=== PATIENT | female | born 1975 | race Hispanic/Latino ===

== ENCOUNTER 2021-02-06 18:34 | Inpatient (IN) | payer SELFPAY ==
[2021-02-06] MEDS ORDERED: Ondansetron PF 4 MG/2 ML Vial IVP PRN (19:02)
[2021-02-06] MEDS ORDERED: Acetaminophen 325 MG TAB PO PRN (19:02)
[2021-02-06] MEDS ORDERED: Ondansetron ODT 4 MG TAB PO PRN (19:02)
[2021-02-06] MEDS ORDERED: Metoclopramide HCl 10 MG/2 ML VIAL IVP SCH (19:30)
[2021-02-06] MEDS ORDERED: Labetalol HCl 100 MG/20 ML VIAL SLOW IVP SCH (19:30)
[2021-02-06] MEDS ORDERED: diphenhydrAMINE 50 MG/ML VIAL IVP SCH (19:45)
[2021-02-06] MEDS: Metoprolol Tartrate 25 MG TAB PO SCH ×3 (20:29→23:09)
[2021-02-06] MEDS: ALPRAZolam 1 MG TAB PO PRN ×2 (20:30→21:33)
[2021-02-06] MEDS: Potassium Chloride 20 MEQ TAB PO SCH ×2 (20:30→21:31)
[2021-02-06 21:13] LABS: Magnesium 2.1 mg/dL (1.6-2.6); Phosphorus 3.1 mg/dL (2.3-4.7)
[2021-02-06 21:34] LABS: Free T4 (Free Thyroxine) 0.68 ng/dL (0.70-1.48); Thyroid Stimulating Hormone 1.3809 uIU/mL (0.35-4.94)
[2021-02-06 21:44] VITALS: BMI 25.2
[2021-02-06] MEDS: medroxyPROGESTERone Acetate 5 MG TAB PO SCH (22:28)
[2021-02-06] MEDS: Tranexamic Acid 650 MG TAB PO SCH (22:30)
[2021-02-07 06:27] LABS: #Eosinphils 0.2 10x3/uL (0.0-0.5); #Monocytes 0.4 10x3/uL (0.0-1.1); #Neutrophils 2.7 10x3/uL (1.5-8.4); %Basophils 0.6 % (0.0-2.0); %Eosinophils 3.7 % (0.0-6.0); %Lymphocytes 28.5 % (18.0-47.0); %Monocytes 8.4 % (0.0-10.0); %Neutrophils 58.4 % (40.0-75.0); Anion Gap 10 mmol/L (10-20); BUN (Urea Nitrogen) 8 mg/dL (7.0-18.7); Calc. Creatinine Clearance 96 mL/min (70-130); Calcium 8.5 mg/dL (7.8-10.44); Carbon Dioxide 22 mmol/L (22-29); Chloride 111 mmol/L (98-107); Glucose 111 mg/dL (70-105); Hemoglobin 6.7 g/dL (12.0-15.5); Mean Corpuscular HGB CONC 28.2 g/dL (32.0-36.0); Mean Corpuscular Hemoglobin 20.6 pg (27.0-33.0); Mean Corpuscular Volume 73.2 fl (81.6-98.3); Mean Platelet Volume 10.5 fl (7.4-10.4); Platelet Count 350 10x3/uL (150-450); Potassium 4.2 mmol/L (3.5-5.1); RBC Distribution Width 20.9 % (11.5-14.5); Red Blood Cell (RBC) Count 3.25 10x6/uL (3.90-5.03); Sodium 139 mmol/L (136-145); White Blood Cell (WBC) Count 4.6 10x3/uL (3.5-10.5)
[2021-02-07] MEDS ORDERED: Ferrous Sulfate 325 MG TAB PO SCH (08:00)
[2021-02-07] MEDS: Tranexamic Acid 650 MG TAB PO SCH ×2 (08:53→15:50)
[2021-02-07] MEDS ORDERED: Lisinopril 20 MG TAB PO SCH (09:00)
[2021-02-07] MEDS ORDERED: traMADol HCl 50 MG TAB PO SCH (09:00)
[2021-02-07] MEDS: medroxyPROGESTERone Acetate 5 MG TAB PO SCH (11:03)
[2021-02-07 15:10] LABS: SARS-CoV-2 PCR by NAA Not Detected (NotDetected)
[2021-02-07 15:55] VITALS: BP 130/65; TEMP 98.6
[2021-02-07 16:26] LABS: #Basophils 0.1 10x3/uL (0.0-0.2); #Eosinphils 0.2 10x3/uL (0.0-0.5); #Monocytes 0.6 10x3/uL (0.0-1.1); #Neutrophils 4.1 10x3/uL (1.5-8.4); %Basophils 0.9 % (0.0-2.0); %Eosinophils 2.3 % (0.0-6.0); %Lymphocytes 24.6 % (18.0-47.0); %Monocytes 9.2 % (0.0-10.0); %Neutrophils 62.5 % (40.0-75.0); Hemoglobin 8.6 g/dL (12.0-15.5); Mean Corpuscular Hemoglobin 21.3 pg (27.0-33.0); Mean Corpuscular Volume 73.5 fl (81.6-98.3); Mean Platelet Volume 9.9 fl (7.4-10.4); Platelet Count 363 10x3/uL (150-450); RBC Distribution Width 21.6 % (11.5-14.5); Red Blood Cell (RBC) Count 4.04 10x6/uL (3.90-5.03); White Blood Cell (WBC) Count 6.5 10x3/uL (3.5-10.5)
[2021-02-07 17:34] LABS: Anisocytosis MODERATE=16-30 cells (100X) (0-5/hpf); Hypochromia MODERATE=16-30 cells (100X) (0-5/hpf); Microcytosis SLIGHT = 6-15 cells (100X) (0-5/hpf); Polychromasia SLIGHT = 2-3 cells (100X) (0-2/hpf); Spherocytes SLIGHT = 1-5 cells (100X) (None Seen)
[2021-02-07 17:36] LABS: Stomatocytes SLIGHT = 2-5 cells (100X) (0-1/hpf)
[2021-02-07 17:37] LABS: Giant Platelets SLIGHT; Large Platelets SLIGHT; Platelet Morphology Comment Appears Adequate
== END 2021-02-07 17:55 | disposition home or self-care (01) | DRG 761 ==
LOC: CSHPP 18:34
PROVIDERS: ADMIT Obstetrics & Gynecology; ATTEND Obstetrics & Gynecology
PROC: 30233N1 Transfusion of Nonautologous Red Blood Cells into Peripheral Vein, Percutaneous Approach (ICD-10-PCS; principal; 2021-02-06)
DX: D25.9 Leiomyoma of uterus, unspecified (principal); N92.0 Excessive and frequent menstruation with regular cycle; D64.9 Anemia, unspecified; I16.0 Hypertensive urgency; E87.6 Hypokalemia; E02 Subclinical iodine-deficiency hypothyroidism; F41.9 Anxiety disorder, unspecified; R73.9 Hyperglycemia, unspecified; I95.9 Hypotension, unspecified; I10 Essential (primary) hypertension; Z90.721 Acquired absence of ovaries, unilateral; Z88.0 Allergy status to penicillin; Z88.5 Allergy status to narcotic agent
CPT/HCPCS: 36415; 71045; 80048; 83735; 84100; 84439; 84443; 85025; 86850; 86900; 86901; 86922; 87635; 93005; 93010; J2765; P9016; Q0162; U0003; U0005

== ENCOUNTER 2023-05-23 12:59 | Emergency (ER) | payer BC, SELFPAY ==
[2023-05-23 13:29] LABS: #Eosinphils 0.1 10x3/uL (0.0-0.5); #Monocytes 0.5 10x3/uL (0.0-1.1); #Neutrophils 3.6 10x3/uL (1.5-8.4); %Basophils 0.5 % (0.0-2.0); %Eosinophils 1.8 % (0.0-6.0); %Lymphocytes 22.3 % (18.0-47.0); %Monocytes 9.2 % (0.0-10.0); %Neutrophils 65.8 % (40.0-75.0); Hematocrit 37.3 % (34.9-44.5); Hemoglobin 12.4 g/dL (12.0-15.5); Mean Corpuscular HGB CONC 33.2 g/dL (32.0-36.0); Mean Corpuscular Hemoglobin 33.2 pg (27.0-33.0); Mean Corpuscular Volume 99.7 fl (81.6-98.3); Mean Platelet Volume 11.4 fl (7.4-10.4); Platelet Count 207 10x3/uL (150-450); RBC Distribution Width 12.1 % (11.5-14.5); Red Blood Cell (RBC) Count 3.74 10x6/uL (3.90-5.03); White Blood Cell (WBC) Count 5.5 10x3/uL (3.5-10.5)
[2023-05-23 13:42] LABS: ALT (SGPT) 23 U/L (8-55); AST (SGOT) 22 U/L (5-34); Albumin 3.7 g/dL (3.5-5.0); Alkaline Phosphatase 57 U/L (40-110); Anion Gap 14 mmol/L (10-20); BUN (Urea Nitrogen) 6 mg/dL (7.0-18.7); Bilirubin, Total 0.4 mg/dL (0.2-1.2); Calc. Creatinine Clearance 0 mL/min (70-130); Calcium 8.5 mg/dL (7.8-10.44); Carbon Dioxide 26 mmol/L (22-29); Chloride 105 mmol/L (98-107); Estimated GFR 110; Globulin 1.9 g/dL (2.4-3.5); Glucose 93 mg/dL (70-105); Potassium 3.6 mmol/L (3.5-5.1); Protein, Total 5.6 g/dL (6.0-8.3); Sodium 141 mmol/L (136-145)
[2023-05-23 13:48] LABS: Troponin I Less than 0.010 ng/mL (< 0.028)
[2023-05-23] MEDS ORDERED: Ketorolac Tromethamine 30 MG/ML VIAL ONE ×2 (15:07→15:45)
[2023-05-23 16:17] LABS: SARS-CoV-2 NAA Rapid Test Not Detected (NotDetected)
== END 2023-05-23 16:40 | disposition home or self-care (01) ==
LOC: CSHERS 12:59
DX: B34.9 Viral infection, unspecified (principal); I11.9 Hypertensive heart disease without heart failure; Z20.822 Contact with and (suspected) exposure to COVID-19; Z79.899 Other long term (current) drug therapy
CPT/HCPCS: 71045; 80053; 84484; 85025; 93005; 96372; J1885